=== PATIENT | male | born 1955 ===

== ENCOUNTER 2019-09-06 23:38 | Inpatient (IN) | payer MEDICARE, OTHER ==
[~2019-09-06] VITALS: Ht 170.2 cm; Wt 100.0 kg
--- NOTE | 2019-09-07 00:06 | NUR ---
THIS IS A 64 YO MALE BIB EMS FROM [facility] FOR ABNORMAL LABS, WBC AT 27. PER PAPERWORK THAT PATIENT CAME WITH, POSSIBLE EARLY SEPSIS, POTENTIAL LLL PNA, + SHINGLES LOCATED IN UPPER LEFT ABD QUADRANT. PATIENT IS A&OX4 AT THIS TIME, PIV PLACED BY SENDING FACILITY. PATIENT DENIES SOB, DENIES CP, ONLY COMPLAINT IS PAIN WHERE SHINGLES IS LOCATED. PER PAPERWORK, PATIENT SLIPPED IN BATHROOM AT HOME AND THAT IS THE REASON EMS PICKED PATIENT UP AT HOME. AT SENDING FACILITY PATIENT WAS CONFUSED, FEBRILE, DIAPHORETIC, MULTIPLE ABNORMAL LABS. PATIENT DENIES RECENT TRAVEL, DENIES BEING IN CONTACT WITH ANYONE WITH RECENT TRAEL OUT OF COUNTRY OR TO LOCATION WHERE COVID-19 OUTBREAK IS PRESENT. PATIENT SPEAKING IN FULL SENTENCES, PATIENT IS DIAPHORETIC, NORMOTEMP, PATIENT HAS GENERALIZED WEAKNESS. VSS, ALL MONITORING IN PLACE, SINUS RHYTHM ON MONITOR. CALL LIGHT IN REACH.
--- NOTE | 2019-09-07 00:10 | NUR ---
ERP IN ROOM, ERP TO DO COVID-19 TEST. PATIENT NOW ON [employer] PRECAUTIONS FOR RULE-OUT COVID-19. PATIENT ALSO ON CONTACT PRECAUTIONS FOR SHINGLES
[2019-09-07] MEDS ORDERED: ACYC-114 PO (00:23)
[2019-09-07] MEDS ORDERED: METF500T17 PO (00:23)
[2019-09-07] MEDS ORDERED: ATOR-2 PO (00:23)
[2019-09-07] MEDS ORDERED: MELO7.5T5 PO (00:24)
[2019-09-07] MEDS ORDERED: OMEP-110 PO (00:24)
[2019-09-07] MEDS ORDERED: OXYC-307 PO (00:25)
[2019-09-07] MEDS ORDERED: SODIUM CHLORIDE FLUSH 10ML SYR IVF ONE (00:30)
[2019-09-07 00:53] LABS: MEAN CORPUSCULAR HEMOGLOBIN 32.2 pg (27.5-34.5); MEAN CORPUSCULAR HGB CONC 33.4 g/dL (33.2-36.2); MEAN CORPUSCULAR VOLUME 96.3 fL (81-97); MEAN PLATELET VOLUME 9.1 fL (7.4-10.4); PLATELET COUNT 265 x10^3/uL (130-400); RED BLOOD COUNT 4.54 x10^6/uL (4.38-5.82); RED CELL DISTRIBUTION WIDTH 13.4 % (9.4-14.8)
--- NOTE | 2019-09-07 00:57 | NUR ---
REPORT TO FRED BARAJAS RN.
[2019-09-07] MEDS ORDERED: SODIUM CHLORIDE FLUSH 10ML SYR IVF PRN (01:00)
[2019-09-07 01:02] LABS: ALBUMIN 2.2 g/dL (3.4-5.0); ANION GAP 7 mmol/L (5-15); CALCIUM 9.2 mg/dL (8.5-10.1); CHLORIDE 102 mmol/L (98-107); CREATININE 1.02 mg/dL (0.7-1.3)
[2019-09-07 01:14] LABS: BASOPHILS # (AUTO) 0.01 x10^3/uL (0-0.1); BASOPHILS % (AUTO) 0 % (0-1); EOSINOPHILS # (AUTO) 0.01 x10^3/uL (0-0.4); EOSINOPHILS % (AUTO) 0 % (1-7); LYMPHOCYTES # (AUTO) 1.14 x10^3/uL (1-3.4); LYMPHOCYTES % (AUTO) 4 % (22-44); MD SCAN; MONOCYTES # (AUTO) 1.51 x10^3/uL (0.2-0.8); MONOCYTES % (AUTO) 5 % (2-9); NEUTROPHILS # (AUTO) 27.21 x10^3/uL (1.8-6.8); NEUTROPHILS % (AUTO) 91 % (42-75)
--- NOTE | 2019-09-07 01:30 | NUR ---
THIS RN TO ASSUME BACK CARE OF PATIENT
--- NOTE | 2019-09-07 02:17 | NUR ---
ATTEMPT TO CALL REPORT X1
--- NOTE | 2019-09-07 02:25 | NUR ---
REPORT GIVEN TO CHARLIE RASMUSSEN. PLAN OF CARE DISCUSSED
[2019-09-07] MEDS ORDERED: PROMETHAZINE 25 MG/ML, 1ML IM PRN (03:00)
[2019-09-07] MEDS ORDERED: ACETAMINOPHEN 325 MG TABLET PO PRN (03:00)
[2019-09-07] MEDS ORDERED: ONDANSETRON 2MG/ML, 2ML IVPush PRN (03:00)
[2019-09-07] MEDS ORDERED: BISACODYL 10 MG SUPP PR PRN (03:00)
[2019-09-07] MEDS ORDERED: GABAPENTIN 300 MG CAPSULE PO PRN (03:00)
[2019-09-07] MEDS ORDERED: DOCUSATE 100 MG CAPSULE PO PRN (03:00)
[2019-09-07] MEDS ORDERED: VANCOMYCIN PER PHARMACY MC PRN (03:00)
[2019-09-07] MEDS ORDERED: DEXTROSE 50%, 50ML SYRINGE IVPush PRN (03:00)
[2019-09-07] MEDS ORDERED: POLYETHYLENE GLYCOL 17 GM PACKET PO PRN (03:00)
[2019-09-07] MEDS ORDERED: DEXTROSE 4 GM TAB.CHEW PO PRN (03:00)
[2019-09-07] MEDS ORDERED: GLUCAGON 1 MG IM PRN (03:00)
[2019-09-07] MEDS ORDERED: VANCOMYCIN 2,400 MG in SODIUM CHLORIDE 0.9% 500 ML IV ONE ×2 (03:30→07:00)
[2019-09-07] MEDS ORDERED: PHARMACOKINETIC CONSULTATION MC ONE (03:30)
[2019-09-07] MEDS ORDERED: PHARMACOKINETIC MONITORING MC PRN (03:30)
[2019-09-07] MEDS: OXYcodone/APAP 10/325MG TABLET PO PRN ×2 (03:45→12:55)
[2019-09-07] MEDS: ENOXAPARIN 40 MG/0.4 ML SQ SCH (03:47)
[2019-09-07] MEDS: PIPERACILLIN/TAZO/PMX 3.375GM 50 ML IV SCH ×4 (03:47→21:04)
[2019-09-07] MEDS: SODIUM CHLORIDE 0.9% 1,000 ML IV SCH ×4 (03:48→22:56)
[2019-09-07 03:52] VITALS: BP 139/89
[2019-09-07 05:05] LABS: MEAN CORPUSCULAR HEMOGLOBIN 32.1 pg (27.5-34.5); MEAN CORPUSCULAR HGB CONC 33.5 g/dL (33.2-36.2); MEAN CORPUSCULAR VOLUME 95.8 fL (81-97); MEAN PLATELET VOLUME 9.1 fL (7.4-10.4); PLATELET COUNT 227 x10^3/uL (130-400); RED BLOOD COUNT 4.54 x10^6/uL (4.38-5.82); RED CELL DISTRIBUTION WIDTH 13.1 % (9.4-14.8)
[2019-09-07 05:11] LABS: ALBUMIN 2.2 g/dL (3.4-5.0); ANION GAP 8 mmol/L (5-15); CALCIUM 9.2 mg/dL (8.5-10.1); CHLORIDE 104 mmol/L (98-107)
[2019-09-07 05:15] LABS: ALANINE AMINOTRANSFERASE 28 U/L (12-78); ALKALINE PHOSPHATASE 87 U/L (45-117); BILIRUBIN,TOTAL 0.5 mg/dL (0.2-1.0); CREATINE KINASE, TOTAL 70 U/L (39-308); TOTAL PROTEIN 6.6 g/dL (6.4-8.2)
[2019-09-07 05:51] LABS: MD YES
[2019-09-07 05:53] LABS: BAND#(MANUAL) 0.52 x10^3/uL; BANDS%(MANUAL) 2 % (0-7); LYMPH#(MANUAL) 1.31 x10^3/uL (1-3.4); LYMPHS% (MANUAL) 5 % (22-44); MONOS#(MANUAL) 1.31 x10^3/uL (0.3-2.7); MONOS% (MANUAL) 5 % (2-9); SEG#(MANUAL) 23.06 x10^3/uL (1.8-6.8); SEGS% (MANUAL) 88 % (42-75)
[2019-09-07 05:54] LABS: <PLATELET ESTIMATE> ADEQUATE; <PLT MORPHOLOGY> NORMAL PLT MORPH; <RBC MORPHOLOGY> NORMAL
[2019-09-07] MEDS: INSULIN LISPRO 100 UNITS/ML, PEN SQ-INSULIN SCH ×4 (07:00→21:06)
[2019-09-07 08:00] VITALS: BP 146/78
[2019-09-07] MEDS: OMEPRAZOLE 20 MG CAPSULE.DR PO SCH (09:03)
[2019-09-07] MEDS: ACYCLOVIR 400 MG TABLET PO SCH ×5 (09:03→21:05)
[2019-09-07] MEDS: SODIUM CHLORIDE FLUSH 10ML SYR IVF SCH ×2 (09:14→21:08)
[2019-09-07] MEDS: INSULIN GLARGINE 100 UNITS/ML, PEN SQ-INSULIN SCH ×2 (10:05→21:07)
[2019-09-07 12:55] VITALS: BP 137/86
[2019-09-07] MEDS: GABAPENTIN 100 MG CAPSULE PO SCH ×2 (17:06→21:06)
[2019-09-07] MEDS ORDERED: morphine SULFATE ORAL.CONC 20 MG/ML PO PRN (17:30)
[2019-09-07] MEDS: ATORVASTATIN 80 MG TABLET PO SCH (21:05)
[2019-09-07] MEDS: MORPHINE SULFATE 4 MG/ML, 1ML IVPush PRN (21:29)
[2019-09-07 21:59] VITALS: BP 127/76
[2019-09-08 03:04] VITALS: BP 127/78
[2019-09-08] MEDS: ENOXAPARIN 40 MG/0.4 ML SQ SCH (03:07)
[2019-09-08] MEDS: PIPERACILLIN/TAZO/PMX 3.375GM 50 ML IV SCH ×4 (03:07→21:03)
[2019-09-08] MEDS: MORPHINE SULFATE 4 MG/ML, 1ML IVPush PRN ×4 (03:36→20:55)
[2019-09-08 05:23] LABS: MEAN CORPUSCULAR HEMOGLOBIN 32.2 pg (27.5-34.5); MEAN CORPUSCULAR HGB CONC 33.6 g/dL (33.2-36.2); MEAN CORPUSCULAR VOLUME 95.8 fL (81-97); MEAN PLATELET VOLUME 9.2 fL (7.4-10.4); PLATELET COUNT 212 x10^3/uL (130-400); RED BLOOD COUNT 4.09 x10^6/uL (4.38-5.82); RED CELL DISTRIBUTION WIDTH 13.1 % (9.4-14.8)
[2019-09-08 05:37] LABS: ANION GAP 7 mmol/L (5-15); CALCIUM 8.6 mg/dL (8.5-10.1); CHLORIDE 104 mmol/L (98-107)
[2019-09-08 05:40] LABS: CREATININE 0.59 mg/dL (0.7-1.3)
[2019-09-08 05:58] LABS: MD YES
[2019-09-08 05:59] LABS: <RBC MORPHOLOGY> NORMAL; BAND#(MANUAL) 1.16 x10^3/uL; BANDS%(MANUAL) 5 % (0-7); LYMPH#(MANUAL) 2.32 x10^3/uL (1-3.4); LYMPHS% (MANUAL) 10 % (22-44); MONOS#(MANUAL) 1.16 x10^3/uL (0.3-2.7); MONOS% (MANUAL) 5 % (2-9); SEG#(MANUAL) 18.56 x10^3/uL (1.8-6.8); SEGS% (MANUAL) 80 % (42-75)
[2019-09-08 06:00] LABS: <PLATELET ESTIMATE> ADEQUATE; <PLT MORPHOLOGY> NORMAL PLT MORPH
[2019-09-08] MEDS ORDERED: VANCOMYCIN 2,000 MG in SODIUM CHLORIDE 0.9% 500 ML IV SCH (06:00)
[2019-09-08] MEDS: SODIUM CHLORIDE 0.9% 1,000 ML IV SCH (06:17)
[2019-09-08] MEDS: ACYCLOVIR 400 MG TABLET PO SCH ×5 (06:17→20:56)
[2019-09-08 06:44] VITALS: BP 132/85
[2019-09-08] MEDS: INSULIN GLARGINE 100 UNITS/ML, PEN SQ-INSULIN SCH ×2 (08:58→21:58)
[2019-09-08] MEDS: INSULIN LISPRO 100 UNITS/ML, PEN SQ-INSULIN SCH ×4 (08:58→21:00)
[2019-09-08] MEDS: GABAPENTIN 100 MG CAPSULE PO SCH ×3 (08:59→20:56)
[2019-09-08] MEDS: OMEPRAZOLE 20 MG CAPSULE.DR PO SCH (08:59)
[2019-09-08] MEDS: SODIUM CHLORIDE FLUSH 10ML SYR IVF SCH ×2 (09:00→21:00)
[2019-09-08] MEDS ORDERED: POTASSIUM CHLORIDE 20 MEQ TAB.ER.PRT PO ONE (09:30)
[2019-09-08] MEDS: OXYcodone/APAP 10/325MG TABLET PO PRN ×3 (10:33→23:06)
[2019-09-08] MEDS: VANCOMYCIN 2,000 MG in SODIUM CHLORIDE 0.9% 500 ML IV SCH (10:34)
[2019-09-08 13:14] VITALS: BP 130/82
[2019-09-08 19:39] VITALS: BP 180/82
[2019-09-08] MEDS: ATORVASTATIN 80 MG TABLET PO SCH (20:56)
[2019-09-09 00:19] VITALS: BP 126/86
[2019-09-09] MEDS: ENOXAPARIN 40 MG/0.4 ML SQ SCH (03:17)
[2019-09-09] MEDS: PIPERACILLIN/TAZO/PMX 3.375GM 50 ML IV SCH ×4 (03:17→20:48)
[2019-09-09] MEDS: OXYcodone/APAP 10/325MG TABLET PO PRN ×3 (03:38→15:11)
[2019-09-09] MEDS: ACYCLOVIR 400 MG TABLET PO SCH ×5 (05:41→20:50)
[2019-09-09] MEDS: MORPHINE SULFATE 4 MG/ML, 1ML IVPush PRN ×4 (05:44→20:49)
[2019-09-09] MEDS: INSULIN LISPRO 100 UNITS/ML, PEN SQ-INSULIN SCH ×4 (06:21→21:02)
[2019-09-09 08:14] VITALS: BP 123/80
[2019-09-09] MEDS: GABAPENTIN 100 MG CAPSULE PO SCH ×3 (08:58→20:50)
[2019-09-09] MEDS: OMEPRAZOLE 20 MG CAPSULE.DR PO SCH (08:59)
[2019-09-09] MEDS: SODIUM CHLORIDE FLUSH 10ML SYR IVF SCH ×2 (09:00→20:49)
[2019-09-09] MEDS: INSULIN GLARGINE 100 UNITS/ML, PEN SQ-INSULIN SCH ×2 (09:00→21:01)
[2019-09-09] MEDS: VANCOMYCIN 2,000 MG in SODIUM CHLORIDE 0.9% 500 ML IV SCH (11:07)
[2019-09-09 13:48] VITALS: BP 161/81
[2019-09-09 19:01] VITALS: BP 143/80
[2019-09-09] MEDS: ATORVASTATIN 80 MG TABLET PO SCH (20:49)
[2019-09-10 00:39] VITALS: BP 136/77
[2019-09-10] MEDS: PIPERACILLIN/TAZO/PMX 3.375GM 50 ML IV SCH ×4 (02:49→21:11)
[2019-09-10] MEDS: ENOXAPARIN 40 MG/0.4 ML SQ SCH (02:49)
[2019-09-10] MEDS: OXYcodone/APAP 10/325MG TABLET PO PRN ×3 (02:50→16:51)
[2019-09-10] MEDS: ACYCLOVIR 400 MG TABLET PO SCH ×5 (06:09→20:21)
[2019-09-10 06:42] VITALS: BP 144/87
[2019-09-10 06:53] LABS: MEAN CORPUSCULAR HEMOGLOBIN 32.2 pg (27.5-34.5); MEAN CORPUSCULAR HGB CONC 33.4 g/dL (33.2-36.2); MEAN CORPUSCULAR VOLUME 96.4 fL (81-97); MEAN PLATELET VOLUME 9.3 fL (7.4-10.4); PLATELET COUNT 227 x10^3/uL (130-400); RED BLOOD COUNT 4.12 x10^6/uL (4.38-5.82); RED CELL DISTRIBUTION WIDTH 13.4 % (9.4-14.8)
[2019-09-10] MEDS: INSULIN LISPRO 100 UNITS/ML, PEN SQ-INSULIN SCH ×4 (07:00→20:30)
[2019-09-10 07:04] LABS: ANION GAP 7 mmol/L (5-15); CHLORIDE 106 mmol/L (98-107)
[2019-09-10 07:05] LABS: CREATININE 0.61 mg/dL (0.7-1.3)
[2019-09-10 08:07] LABS: MD YES
[2019-09-10 08:09] LABS: BAND#(MANUAL) 0.59 x10^3/uL; BANDS%(MANUAL) 3 % (0-7); BASOS% (MANUAL) 1 % (0-1); EOS% (MANUAL) 1 % (1-7); LYMPH#(MANUAL) 1.19 x10^3/uL (1-3.4); LYMPHS% (MANUAL) 6 % (22-44); MONOS#(MANUAL) 0.59 x10^3/uL (0.3-2.7); MONOS% (MANUAL) 3 % (2-9); SEG#(MANUAL) 17.03 x10^3/uL (1.8-6.8); SEGS% (MANUAL) 86 % (42-75)
[2019-09-10 08:10] LABS: <PLATELET ESTIMATE> ADEQUATE; <PLT MORPHOLOGY> NORMAL PLT MORPH; <RBC MORPHOLOGY> NORMAL; PMNS WITH VACUOLES 1+; TOXIC GRAN 1+
[2019-09-10] MEDS: SODIUM CHLORIDE FLUSH 10ML SYR IVF SCH ×2 (09:02→20:25)
[2019-09-10] MEDS: OMEPRAZOLE 20 MG CAPSULE.DR PO SCH (09:03)
[2019-09-10] MEDS: GABAPENTIN 100 MG CAPSULE PO SCH (09:03)
[2019-09-10] MEDS: INSULIN GLARGINE 100 UNITS/ML, PEN SQ-INSULIN SCH ×2 (09:04→20:31)
[2019-09-10] MEDS ORDERED: POTASSIUM CHLORIDE 20 MEQ TAB.ER.PRT PO ONE (11:00)
[2019-09-10] MEDS: VANCOMYCIN 2,000 MG in SODIUM CHLORIDE 0.9% 500 ML IV SCH (11:35)
[2019-09-10] MEDS: MORPHINE SULFATE 4 MG/ML, 1ML IVPush PRN ×4 (11:45→23:33)
[2019-09-10 13:56] VITALS: BP 117/76
[2019-09-10] MEDS: GABAPENTIN 300 MG CAPSULE PO SCH ×2 (15:09→20:22)
[2019-09-10] MEDS: metFORMIN 500 MG TABLET PO SCH (20:21)
[2019-09-10] MEDS: ATORVASTATIN 80 MG TABLET PO SCH (20:22)
[2019-09-10 20:42] VITALS: BP 142/83
[2019-09-10] MEDS ORDERED: VANCOMYCIN 2,000 MG in SODIUM CHLORIDE 0.9% 500 ML IV SCH (23:30)
[2019-09-11 01:35] VITALS: BP 153/88
[2019-09-11] MEDS: OXYcodone/APAP 10/325MG TABLET PO PRN ×4 (01:57→21:21)
[2019-09-11] MEDS: MORPHINE SULFATE 4 MG/ML, 1ML IVPush PRN ×3 (03:29→18:33)
[2019-09-11] MEDS: ENOXAPARIN 40 MG/0.4 ML SQ SCH (03:29)
[2019-09-11] MEDS: PIPERACILLIN/TAZO/PMX 3.375GM 50 ML IV SCH (03:29)
[2019-09-11 05:11] LABS: MEAN CORPUSCULAR HEMOGLOBIN 32.1 pg (27.5-34.5); MEAN CORPUSCULAR HGB CONC 33.5 g/dL (33.2-36.2); MEAN CORPUSCULAR VOLUME 95.8 fL (81-97); PLATELET COUNT 239 x10^3/uL (130-400); RED BLOOD COUNT 4.01 x10^6/uL (4.38-5.82); RED CELL DISTRIBUTION WIDTH 13.3 % (9.4-14.8)
[2019-09-11 05:20] LABS: ALBUMIN 1.7 g/dL (3.4-5.0); ANION GAP 6 mmol/L (5-15); CALCIUM 8.7 mg/dL (8.5-10.1); CHLORIDE 107 mmol/L (98-107); CREATININE 0.64 mg/dL (0.7-1.3)
[2019-09-11] MEDS: ACYCLOVIR 400 MG TABLET PO SCH ×5 (05:59→21:21)
[2019-09-11 06:05] LABS: MD YES
[2019-09-11 06:08] LABS: BAND#(MANUAL) 0.85 x10^3/uL; BANDS%(MANUAL) 5 % (0-7); BASOS#(MANUAL) 0.17 x10^3/uL (0-0.1); BASOS% (MANUAL) 1 % (0-1); EOS#(MANUAL) 0.17 x10^3/uL (0.0-0.4); EOS% (MANUAL) 1 % (1-7); LYMPH#(MANUAL) 1.01 x10^3/uL (1-3.4); LYMPHS% (MANUAL) 6 % (22-44); MONOS#(MANUAL) 1.69 x10^3/uL (0.3-2.7); MONOS% (MANUAL) 10 % (2-9); SEG#(MANUAL) 13.01 x10^3/uL (1.8-6.8); SEGS% (MANUAL) 77 % (42-75)
[2019-09-11 06:10] LABS: <PLATELET ESTIMATE> ADEQUATE; <PLT MORPHOLOGY> NORMAL PLT MORPH; <RBC MORPHOLOGY> NORMAL; TOXIC GRAN 1+
[2019-09-11 07:06] VITALS: BP 124/78
[2019-09-11] MEDS: AMOXICILLIN/CLAV 875-125MG TABLET PO SCH ×2 (08:18→21:21)
[2019-09-11] MEDS: GABAPENTIN 300 MG CAPSULE PO SCH ×3 (08:18→21:20)
[2019-09-11] MEDS: DOXYCYCLINE 100MG TABLET PO SCH ×2 (08:18→21:22)
[2019-09-11] MEDS: OMEPRAZOLE 20 MG CAPSULE.DR PO SCH (08:18)
[2019-09-11] MEDS: INSULIN GLARGINE 100 UNITS/ML, PEN SQ-INSULIN SCH ×2 (08:19→21:20)
[2019-09-11] MEDS: metFORMIN 500 MG TABLET PO SCH ×2 (08:19→21:22)
[2019-09-11] MEDS: SODIUM CHLORIDE FLUSH 10ML SYR IVF SCH ×2 (08:21→21:00)
[2019-09-11] MEDS: INSULIN LISPRO 100 UNITS/ML, PEN SQ-INSULIN SCH ×4 (08:21→21:20)
[2019-09-11] MEDS ORDERED: CAPSAICIN CRM 0.075%, 60GM TP PRN (09:00)
[2019-09-11 14:00] VITALS: BP 126/79
[2019-09-11 19:10] VITALS: BP 127/78
[2019-09-11] MEDS: AMITRIPTYLINE 25 MG TABLET PO SCH (21:21)
[2019-09-11] MEDS: ATORVASTATIN 80 MG TABLET PO SCH (21:22)
[2019-09-12 02:45] VITALS: BP 143/83
[2019-09-12] MEDS: ENOXAPARIN 40 MG/0.4 ML SQ SCH (02:55)
[2019-09-12] MEDS: MORPHINE SULFATE 4 MG/ML, 1ML IVPush PRN ×5 (02:56→21:40)
[2019-09-12] MEDS: ACYCLOVIR 400 MG TABLET PO SCH ×5 (05:24→21:33)
[2019-09-12] MEDS: OXYcodone/APAP 10/325MG TABLET PO PRN ×2 (05:24→17:47)
[2019-09-12 05:30] LABS: BASOPHILS # (AUTO) 0.07 x10^3/uL (0-0.1); BASOPHILS % (AUTO) 0 % (0-1); EOSINOPHILS # (AUTO) 0.38 x10^3/uL (0-0.4); EOSINOPHILS % (AUTO) 3 % (1-7); LYMPHOCYTES # (AUTO) 1.15 x10^3/uL (1-3.4); LYMPHOCYTES % (AUTO) 8 % (22-44); MD NO; MEAN CORPUSCULAR HEMOGLOBIN 32.1 pg (27.5-34.5); MEAN CORPUSCULAR HGB CONC 33.1 g/dL (33.2-36.2); MEAN CORPUSCULAR VOLUME 96.9 fL (81-97); MEAN PLATELET VOLUME 9.4 fL (7.4-10.4); MONOCYTES # (AUTO) 1.01 x10^3/uL (0.2-0.8); MONOCYTES % (AUTO) 7 % (2-9); NEUTROPHILS % (AUTO) 82 % (42-75); PLATELET COUNT 262 x10^3/uL (130-400); RED BLOOD COUNT 4.18 x10^6/uL (4.38-5.82); RED CELL DISTRIBUTION WIDTH 13.4 % (9.4-14.8)
[2019-09-12 05:41] LABS: ANION GAP 8 mmol/L (5-15); CALCIUM 8.9 mg/dL (8.5-10.1); CHLORIDE 108 mmol/L (98-107); CREATININE 0.64 mg/dL (0.7-1.3)
[2019-09-12] MEDS: DOXYCYCLINE 100MG TABLET PO SCH ×2 (07:07→21:33)
[2019-09-12] MEDS: OMEPRAZOLE 20 MG CAPSULE.DR PO SCH (07:07)
[2019-09-12] MEDS: AMOXICILLIN/CLAV 875-125MG TABLET PO SCH ×2 (07:07→21:33)
[2019-09-12] MEDS: GABAPENTIN 300 MG CAPSULE PO SCH ×3 (07:07→21:33)
[2019-09-12] MEDS: metFORMIN 500 MG TABLET PO SCH ×2 (07:07→21:33)
[2019-09-12] MEDS: SODIUM CHLORIDE FLUSH 10ML SYR IVF SCH ×2 (07:08→21:35)
[2019-09-12 07:27] VITALS: BP 153/90
[2019-09-12] MEDS ORDERED: POTASSIUM CHLORIDE 20 MEQ TAB.ER.PRT PO ONE (08:00)
[2019-09-12] MEDS: INSULIN LISPRO 100 UNITS/ML, PEN SQ-INSULIN SCH ×4 (08:13→21:34)
[2019-09-12] MEDS: INSULIN GLARGINE 100 UNITS/ML, PEN SQ-INSULIN SCH ×2 (08:20→21:34)
[2019-09-12] MEDS: OxyconTIN ER 10 MG TAB.ER PO SCH ×2 (11:56→23:51)
[2019-09-12 13:23] VITALS: BP 141/73
[2019-09-12] MEDS ORDERED: LIDOCAINE/PRILOCAINE CRM W/TEG 5GM TP ONE (15:30)
[2019-09-12] MEDS: KETOROLAC 30 MG/1 ML IVPush PRN (16:35)
[2019-09-12 19:24] VITALS: BP 152/82
[2019-09-12] MEDS: ATORVASTATIN 80 MG TABLET PO SCH (21:32)
[2019-09-12] MEDS: AMITRIPTYLINE 25 MG TABLET PO SCH (21:33)
[2019-09-13 00:09] VITALS: BP 155/92
[2019-09-13] MEDS: MORPHINE SULFATE 4 MG/ML, 1ML IVPush PRN ×3 (04:42→21:04)
[2019-09-13] MEDS: ENOXAPARIN 40 MG/0.4 ML SQ SCH (04:42)
[2019-09-13] MEDS: ACYCLOVIR 400 MG TABLET PO SCH ×5 (06:06→21:04)
[2019-09-13] MEDS: KETOROLAC 30 MG/1 ML IVPush PRN ×3 (06:06→18:25)
[2019-09-13] MEDS: INSULIN LISPRO 100 UNITS/ML, PEN SQ-INSULIN SCH ×4 (07:00→21:06)
[2019-09-13 07:04] VITALS: BP 157/99
[2019-09-13] MEDS: OXYcodone/APAP 10/325MG TABLET PO PRN ×2 (07:37→15:53)
[2019-09-13] MEDS: GABAPENTIN 300 MG CAPSULE PO SCH (09:08)
[2019-09-13] MEDS: INSULIN GLARGINE 100 UNITS/ML, PEN SQ-INSULIN SCH ×2 (09:08→21:06)
[2019-09-13] MEDS: AMOXICILLIN/CLAV 875-125MG TABLET PO SCH ×2 (09:09→21:05)
[2019-09-13] MEDS: OMEPRAZOLE 20 MG CAPSULE.DR PO SCH (09:09)
[2019-09-13] MEDS: metFORMIN 500 MG TABLET PO SCH ×2 (09:09→21:05)
[2019-09-13] MEDS: DOXYCYCLINE 100MG TABLET PO SCH ×2 (09:09→21:05)
[2019-09-13] MEDS: SODIUM CHLORIDE FLUSH 10ML SYR IVF SCH ×2 (09:09→21:07)
[2019-09-13] MEDS: OxyconTIN ER 10 MG TAB.ER PO SCH ×2 (11:16→23:43)
[2019-09-13 12:32] VITALS: BP 166/99
[2019-09-13 13:57] VITALS: BP 151/90
[2019-09-13] MEDS: MUPIROCIN OINT 2%, 22GM TP SCH ×2 (15:52→21:00)
[2019-09-13] MEDS: GABAPENTIN 400 MG CAPSULE PO SCH ×2 (15:52→21:05)
[2019-09-13] MEDS: DOCUSATE 100 MG CAPSULE PO SCH ×2 (15:52→21:05)
[2019-09-13 20:17] VITALS: BP 167/92
[2019-09-13] MEDS: ATORVASTATIN 80 MG TABLET PO SCH (21:05)
[2019-09-13] MEDS: AMITRIPTYLINE 25 MG TABLET PO SCH (21:05)
[2019-09-14 00:18] VITALS: BP 160/92
[2019-09-14] MEDS: KETOROLAC 30 MG/1 ML IVPush PRN ×2 (01:45→07:46)
[2019-09-14] MEDS: ENOXAPARIN 40 MG/0.4 ML SQ SCH (02:16)
[2019-09-14] MEDS: OXYcodone/APAP 10/325MG TABLET PO PRN ×2 (02:16→17:40)
[2019-09-14] MEDS: ACYCLOVIR 400 MG TABLET PO SCH ×5 (06:03→21:03)
[2019-09-14] MEDS: MORPHINE SULFATE 4 MG/ML, 1ML IVPush PRN ×3 (06:03→15:17)
[2019-09-14 06:57] LABS: MEAN CORPUSCULAR HEMOGLOBIN 32.1 pg (27.5-34.5); MEAN CORPUSCULAR HGB CONC 33.2 g/dL (33.2-36.2); MEAN CORPUSCULAR VOLUME 96.6 fL (81-97); MEAN PLATELET VOLUME 8.3 fL (7.4-10.4); PLATELET COUNT 303 x10^3/uL (130-400); RED BLOOD COUNT 4.22 x10^6/uL (4.38-5.82); RED CELL DISTRIBUTION WIDTH 13.3 % (9.4-14.8)
[2019-09-14] MEDS: INSULIN LISPRO 100 UNITS/ML, PEN SQ-INSULIN SCH ×4 (07:00→21:06)
[2019-09-14 07:09] LABS: ANION GAP 7 mmol/L (5-15); CALCIUM 9.1 mg/dL (8.5-10.1); CHLORIDE 111 mmol/L (98-107); CREATININE 0.63 mg/dL (0.7-1.3)
[2019-09-14 07:21] LABS: BASOPHILS # (AUTO) 0.03 x10^3/uL (0-0.1); BASOPHILS % (AUTO) 0 % (0-1); EOSINOPHILS # (AUTO) 0.46 x10^3/uL (0-0.4); EOSINOPHILS % (AUTO) 3 % (1-7); LYMPHOCYTES # (AUTO) 1.48 x10^3/uL (1-3.4); LYMPHOCYTES % (AUTO) 10 % (22-44); MD SCAN; MONOCYTES # (AUTO) 0.64 x10^3/uL (0.2-0.8); MONOCYTES % (AUTO) 4 % (2-9); NEUTROPHILS % (AUTO) 82 % (42-75)
[2019-09-14] MEDS: AMOXICILLIN/CLAV 875-125MG TABLET PO SCH ×2 (07:32→21:03)
[2019-09-14] MEDS: GABAPENTIN 400 MG CAPSULE PO SCH (07:33)
[2019-09-14] MEDS: DOXYCYCLINE 100MG TABLET PO SCH ×2 (07:33→21:03)
[2019-09-14] MEDS: SODIUM CHLORIDE FLUSH 10ML SYR IVF SCH ×2 (07:33→21:00)
[2019-09-14] MEDS: metFORMIN 500 MG TABLET PO SCH ×2 (07:33→21:03)
[2019-09-14] MEDS: DOCUSATE 100 MG CAPSULE PO SCH ×3 (07:35→21:07)
[2019-09-14] MEDS: POLYETHYLENE GLYCOL 17 GM PACKET PO SCH (07:35)
[2019-09-14 07:40] VITALS: BP 160/85
[2019-09-14] MEDS: OMEPRAZOLE 20 MG CAPSULE.DR PO SCH (07:50)
[2019-09-14] MEDS: INSULIN GLARGINE 100 UNITS/ML, PEN SQ-INSULIN SCH ×2 (07:51→21:04)
[2019-09-14] MEDS: MUPIROCIN OINT 2%, 22GM TP SCH ×3 (07:52→21:00)
[2019-09-14] MEDS ORDERED: GABAPENTIN 300 MG CAPSULE PO SCH (10:30)
[2019-09-14] MEDS: OxyconTIN ER 10 MG TAB.ER PO SCH ×2 (12:01→23:29)
[2019-09-14 14:47] VITALS: BP 187/104
[2019-09-14] MEDS ORDERED: GABAPENTIN 300 MG CAPSULE ONE (15:13)
[2019-09-14] MEDS: GABAPENTIN 300 MG CAPSULE PO SCH ×2 (15:16→21:03)
[2019-09-14 19:35] VITALS: BP 167/84
[2019-09-14] MEDS: AMITRIPTYLINE 25 MG TABLET PO SCH (21:03)
[2019-09-14] MEDS: ATORVASTATIN 80 MG TABLET PO SCH (21:03)
[2019-09-15 02:33] VITALS: BP 150/84
[2019-09-15] MEDS: ENOXAPARIN 40 MG/0.4 ML SQ SCH (02:35)
[2019-09-15] MEDS: ACYCLOVIR 400 MG TABLET PO SCH ×5 (04:55→20:16)
[2019-09-15] MEDS: OXYcodone/APAP 10/325MG TABLET PO PRN ×3 (04:55→16:56)
[2019-09-15 05:24] LABS: MEAN CORPUSCULAR HEMOGLOBIN 32.6 pg (27.5-34.5); MEAN CORPUSCULAR HGB CONC 33.8 g/dL (33.2-36.2); MEAN CORPUSCULAR VOLUME 96.5 fL (81-97); MEAN PLATELET VOLUME 8.6 fL (7.4-10.4); PLATELET COUNT 305 x10^3/uL (130-400); RED BLOOD COUNT 4.14 x10^6/uL (4.38-5.82); RED CELL DISTRIBUTION WIDTH 13.2 % (9.4-14.8)
[2019-09-15 05:29] LABS: CALCIUM 8.9 mg/dL (8.5-10.1); CHLORIDE 109 mmol/L (98-107)
[2019-09-15 05:33] LABS: ALBUMIN 1.9 g/dL (3.4-5.0); ANION GAP 8 mmol/L (5-15); CREATININE 0.58 mg/dL (0.7-1.3)
[2019-09-15 06:14] LABS: BASOPHILS # (AUTO) 0.03 x10^3/uL (0-0.1); BASOPHILS % (AUTO) 0 % (0-1); EOSINOPHILS # (AUTO) 0.35 x10^3/uL (0-0.4); EOSINOPHILS % (AUTO) 2 % (1-7); LYMPHOCYTES # (AUTO) 1.29 x10^3/uL (1-3.4); LYMPHOCYTES % (AUTO) 9 % (22-44); MD SCAN; MONOCYTES # (AUTO) 0.93 x10^3/uL (0.2-0.8); MONOCYTES % (AUTO) 6 % (2-9); NEUTROPHILS # (AUTO) 12.61 x10^3/uL (1.8-6.8); NEUTROPHILS % (AUTO) 83 % (42-75)
[2019-09-15] MEDS: INSULIN LISPRO 100 UNITS/ML, PEN SQ-INSULIN SCH ×4 (07:00→20:16)
[2019-09-15 07:46] VITALS: BP 133/86
[2019-09-15] MEDS: SODIUM CHLORIDE FLUSH 10ML SYR IVF SCH ×2 (08:23→20:13)
[2019-09-15] MEDS: AMOXICILLIN/CLAV 875-125MG TABLET PO SCH (08:24)
[2019-09-15] MEDS: INSULIN GLARGINE 100 UNITS/ML, PEN SQ-INSULIN SCH ×2 (08:24→20:17)
[2019-09-15] MEDS: OMEPRAZOLE 20 MG CAPSULE.DR PO SCH (08:24)
[2019-09-15] MEDS: DOXYCYCLINE 100MG TABLET PO SCH (08:24)
[2019-09-15] MEDS: GABAPENTIN 300 MG CAPSULE PO SCH ×3 (08:24→20:15)
[2019-09-15] MEDS: metFORMIN 500 MG TABLET PO SCH ×2 (08:24→17:42)
[2019-09-15] MEDS: MUPIROCIN OINT 2%, 22GM TP SCH ×3 (08:25→20:13)
[2019-09-15] MEDS: DOCUSATE 100 MG CAPSULE PO SCH ×2 (08:25→20:14)
[2019-09-15] MEDS: POLYETHYLENE GLYCOL 17 GM PACKET PO SCH (08:25)
[2019-09-15] MEDS ORDERED: POTASSIUM CHLORIDE 20 MEQ in SODIUM CHLORIDE 0.9% 250 ML IV ONE (09:00)
[2019-09-15] MEDS: POTASSIUM PHOSPHATE IV ONE ×2 (09:57→18:47)
[2019-09-15] MEDS: POTASSIUM CHLORIDE IV ONE ×2 (09:57→18:47)
[2019-09-15] MEDS: SODIUM CHLORIDE 0.9% IV ONE ×2 (09:57→18:47)
[2019-09-15] MEDS: CHOLECALCIFEROL 400 UNITS TABLET PO SCH (10:41)
[2019-09-15] MEDS: MORPHINE SULFATE 4 MG/ML, 1ML IVPush PRN ×2 (10:41→15:42)
[2019-09-15] MEDS: MULTIVITS,STRESS FORMULA 1 TABLET PO SCH (10:41)
[2019-09-15] MEDS: OxyconTIN ER 10 MG TAB.ER PO SCH ×2 (11:43→23:39)
[2019-09-15 11:44] VITALS: BP 142/82
[2019-09-15 14:39] VITALS: BP 143/88
[2019-09-15] MEDS: ASCORBIC ACID 500 MG TABLET PO SCH (16:57)
[2019-09-15 19:22] VITALS: BP 124/76
[2019-09-15] MEDS: AMITRIPTYLINE 25 MG TABLET PO SCH (20:16)
[2019-09-15] MEDS: ATORVASTATIN 80 MG TABLET PO SCH (20:16)
[2019-09-15] MEDS: SULFAMETH./TRIMETHOPRIM DS 800MG/160MG TABLET PO SCH (20:16)
[2019-09-16] MEDS: ENOXAPARIN 40 MG/0.4 ML SQ SCH (02:19)
[2019-09-16 02:46] VITALS: BP 138/80
[2019-09-16] MEDS: ACYCLOVIR 400 MG TABLET PO SCH ×5 (05:29→20:19)
[2019-09-16] MEDS: OXYcodone/APAP 10/325MG TABLET PO PRN ×3 (05:34→18:15)
[2019-09-16 05:56] LABS: MEAN CORPUSCULAR HEMOGLOBIN 32.6 pg (27.5-34.5); MEAN CORPUSCULAR HGB CONC 33.8 g/dL (33.2-36.2); MEAN CORPUSCULAR VOLUME 96.2 fL (81-97); MEAN PLATELET VOLUME 8.3 fL (7.4-10.4); PLATELET COUNT 331 x10^3/uL (130-400); RED BLOOD COUNT 4.15 x10^6/uL (4.38-5.82); RED CELL DISTRIBUTION WIDTH 13.5 % (9.4-14.8)
[2019-09-16 06:12] LABS: ALBUMIN 1.9 g/dL (3.4-5.0); ANION GAP 5 mmol/L (5-15); CALCIUM 9.1 mg/dL (8.5-10.1); CHLORIDE 110 mmol/L (98-107)
[2019-09-16 06:17] LABS: BASOPHILS # (AUTO) 0.02 x10^3/uL (0-0.1); BASOPHILS % (AUTO) 0 % (0-1); EOSINOPHILS # (AUTO) 0.33 x10^3/uL (0-0.4); EOSINOPHILS % (AUTO) 2 % (1-7); LYMPHOCYTES # (AUTO) 1.45 x10^3/uL (1-3.4); LYMPHOCYTES % (AUTO) 10 % (22-44); MD SCAN; MONOCYTES # (AUTO) 0.85 x10^3/uL (0.2-0.8); MONOCYTES % (AUTO) 6 % (2-9); NEUTROPHILS # (AUTO) 11.98 x10^3/uL (1.8-6.8); NEUTROPHILS % (AUTO) 82 % (42-75)
[2019-09-16] MEDS: INSULIN LISPRO 100 UNITS/ML, PEN SQ-INSULIN SCH ×4 (07:00→20:20)
[2019-09-16] MEDS: GABAPENTIN 300 MG CAPSULE PO SCH ×3 (09:00→20:19)
[2019-09-16] MEDS: POLYETHYLENE GLYCOL 17 GM PACKET PO SCH (09:00)
[2019-09-16] MEDS: MULTIVITS,STRESS FORMULA 1 TABLET PO SCH (09:00)
[2019-09-16] MEDS: DOCUSATE 100 MG CAPSULE PO SCH ×3 (09:00→20:20)
[2019-09-16] MEDS: CHOLECALCIFEROL 400 UNITS TABLET PO SCH (09:01)
[2019-09-16] MEDS: SULFAMETH./TRIMETHOPRIM DS 800MG/160MG TABLET PO SCH ×2 (09:01→20:19)
[2019-09-16] MEDS: OMEPRAZOLE 20 MG CAPSULE.DR PO SCH (09:01)
[2019-09-16] MEDS: metFORMIN 500 MG TABLET PO SCH ×2 (09:01→16:03)
[2019-09-16] MEDS: ASCORBIC ACID 500 MG TABLET PO SCH ×2 (09:02→16:03)
[2019-09-16] MEDS: MUPIROCIN OINT 2%, 22GM TP SCH ×3 (09:03→20:20)
[2019-09-16] MEDS: SODIUM CHLORIDE FLUSH 10ML SYR IVF SCH ×2 (09:03→20:20)
[2019-09-16] MEDS: INSULIN GLARGINE 100 UNITS/ML, PEN SQ-INSULIN SCH ×2 (09:03→20:20)
[2019-09-16] MEDS: KETOROLAC 30 MG/1 ML IVPush PRN ×2 (09:05→16:33)
[2019-09-16 09:40] VITALS: BP 140/85
[2019-09-16] MEDS: OxyconTIN ER 10 MG TAB.ER PO SCH ×2 (10:54→23:13)
[2019-09-16] MEDS: MORPHINE SULFATE 4 MG/ML, 1ML IVPush PRN (13:58)
[2019-09-16 15:00] VITALS: BP 130/77
[2019-09-16 19:34] VITALS: BP 131/77
[2019-09-16] MEDS: AMITRIPTYLINE 25 MG TABLET PO SCH (20:19)
[2019-09-16] MEDS: ATORVASTATIN 80 MG TABLET PO SCH (20:19)
[2019-09-17] MEDS: ENOXAPARIN 40 MG/0.4 ML SQ SCH (02:02)
[2019-09-17 02:28] VITALS: BP 145/82
[2019-09-17] MEDS: ACYCLOVIR 400 MG TABLET PO SCH ×5 (06:00→21:23)
[2019-09-17 06:59] LABS: BASOPHILS # (AUTO) 0.02 x10^3/uL (0-0.1); BASOPHILS % (AUTO) 0 % (0-1); EOSINOPHILS # (AUTO) 0.38 x10^3/uL (0-0.4); EOSINOPHILS % (AUTO) 3 % (1-7); LYMPHOCYTES # (AUTO) 1.33 x10^3/uL (1-3.4); LYMPHOCYTES % (AUTO) 10 % (22-44); MD NO; MEAN CORPUSCULAR HEMOGLOBIN 31.9 pg (27.5-34.5); MEAN CORPUSCULAR HGB CONC 32.9 g/dL (33.2-36.2); MEAN PLATELET VOLUME 8.1 fL (7.4-10.4); MONOCYTES # (AUTO) 0.72 x10^3/uL (0.2-0.8); MONOCYTES % (AUTO) 5 % (2-9); NEUTROPHILS # (AUTO) 11.16 x10^3/uL (1.8-6.8); NEUTROPHILS % (AUTO) 82 % (42-75); PLATELET COUNT 332 x10^3/uL (130-400); RED BLOOD COUNT 4.26 x10^6/uL (4.38-5.82); RED CELL DISTRIBUTION WIDTH 13.1 % (9.4-14.8)
[2019-09-17] MEDS: INSULIN LISPRO 100 UNITS/ML, PEN SQ-INSULIN SCH ×4 (07:00→21:00)
[2019-09-17] MEDS ORDERED: BUPIVACAINE/PF 0.5% ONE (07:02)
[2019-09-17] MEDS ORDERED: BUPIVACAINE/PF-EPI 0.5% 1:200K ONE (07:02)
[2019-09-17 07:05] LABS: ANION GAP 6 mmol/L (5-15); CALCIUM 8.9 mg/dL (8.5-10.1); CHLORIDE 110 mmol/L (98-107); CREATININE 0.69 mg/dL (0.7-1.3)
[2019-09-17] MEDS ORDERED: MIDAZOLAM 1 MG/ML, 2ML ONE (07:12)
[2019-09-17] MEDS ORDERED: FENTANYL PF 250 MCG/5ML ONE (07:13)
[2019-09-17] MEDS: MORPHINE SULFATE 4 MG/ML, 1ML IVPush PRN ×2 (07:22→14:10)
[2019-09-17 07:30] VITALS: BP 141/75
[2019-09-17] MEDS ORDERED: ONDANSETRON 2MG/ML, 2ML IV PRN (07:30)
[2019-09-17] MEDS ORDERED: HYDROmorphone 2 MG/ML, 1ML IVPush PRN (07:30)
[2019-09-17] MEDS ORDERED: PROMETHAZINE 25 MG SUPP PR PRN (07:30)
[2019-09-17] MEDS ORDERED: MEPERIDINE/PF 25MG/ML,1ML IVPush PRN (07:30)
[2019-09-17] MEDS ORDERED: LABETALOL 5MG/ML, 20ML IV PRN (07:30)
[2019-09-17] MEDS ORDERED: hydrALAzine 20 MG/ML, 1ML IV PRN (07:30)
[2019-09-17] MEDS ORDERED: LORazepam 2 MG/ML, 1ML IVPush PRN (07:30)
[2019-09-17] MEDS ORDERED: PROMETHAZINE 25 MG/ML, 1ML IV PRN (07:30)
[2019-09-17] MEDS ORDERED: ACETAMINOPHEN 325 MG TABLET PO PRN (07:30)
[2019-09-17] MEDS ORDERED: ONDANSETRON ODT 8 MG PO PRN (07:30)
[2019-09-17] MEDS ORDERED: OXYcodone 5 MG/5 ML ORAL.SOL UDC PO PRN (07:30)
[2019-09-17] MEDS: metFORMIN 500 MG TABLET PO SCH ×2 (07:57→16:05)
[2019-09-17] MEDS: ASCORBIC ACID 500 MG TABLET PO SCH ×2 (07:57→16:05)
[2019-09-17] MEDS ORDERED: CEFAZOLIN 1,000 MG ONE (08:20)
[2019-09-17] MEDS ORDERED: PROPOFOL 10 MG/ML, 20ML ONE (08:20)
[2019-09-17] MEDS ORDERED: ONDANSETRON 2MG/ML, 2ML ONE (08:20)
[2019-09-17] MEDS ORDERED: DEXAMETHASONE 4 MG/ML, 1ML ONE (08:20)
[2019-09-17] MEDS ORDERED: FENTANYL PF 100 MCG/2ML ONE (08:22)
[2019-09-17] MEDS ORDERED: OXYcodone 5 MG/5 ML ORAL.SOL UDC ONE (08:22)
[2019-09-17] MEDS ORDERED: ACETAMINOPHEN 650 MG/20.3 ML UDC ONE (08:23)
[2019-09-17] MEDS: FENTANYL PF 100 MCG/2ML IV PRN ×2 (08:39→08:50)
[2019-09-17] MEDS ORDERED: HYDROmorphone 1 MG/ML, 1ML INJ ONE (08:57)
[2019-09-17] MEDS: MUPIROCIN OINT 2%, 22GM TP SCH (09:00)
[2019-09-17] MEDS: DOCUSATE 100 MG CAPSULE PO SCH ×2 (09:00→21:21)
[2019-09-17] MEDS: INSULIN GLARGINE 100 UNITS/ML, PEN SQ-INSULIN SCH ×2 (09:00→21:23)
[2019-09-17] MEDS: POLYETHYLENE GLYCOL 17 GM PACKET PO SCH (09:00)
[2019-09-17] MEDS: MULTIVITS,STRESS FORMULA 1 TABLET PO SCH (10:25)
[2019-09-17] MEDS: GABAPENTIN 300 MG CAPSULE PO SCH ×3 (10:25→21:25)
[2019-09-17] MEDS: OMEPRAZOLE 20 MG CAPSULE.DR PO SCH (10:25)
[2019-09-17] MEDS: SULFAMETH./TRIMETHOPRIM DS 800MG/160MG TABLET PO SCH ×2 (10:25→21:22)
[2019-09-17] MEDS: SODIUM CHLORIDE FLUSH 10ML SYR IVF SCH ×2 (10:25→21:21)
[2019-09-17] MEDS: CHOLECALCIFEROL 400 UNITS TABLET PO SCH (10:25)
[2019-09-17] MEDS: OxyconTIN ER 10 MG TAB.ER PO SCH ×2 (11:16→23:35)
[2019-09-17 12:53] VITALS: BP 118/64
[2019-09-17] MEDS: OXYcodone/APAP 10/325MG TABLET PO PRN (17:24)
[2019-09-17 19:20] VITALS: BP 130/78
[2019-09-17] MEDS: AMITRIPTYLINE 25 MG TABLET PO SCH (21:00)
[2019-09-17] MEDS: ATORVASTATIN 80 MG TABLET PO SCH (21:22)
[2019-09-18 00:58] VITALS: BP 124/79
[2019-09-18] MEDS: ENOXAPARIN 40 MG/0.4 ML SQ SCH (02:38)
[2019-09-18] MEDS: ACYCLOVIR 400 MG TABLET PO SCH ×5 (05:53→21:38)
[2019-09-18] MEDS: OXYcodone/APAP 10/325MG TABLET PO PRN ×2 (05:55→13:44)
[2019-09-18] MEDS: INSULIN LISPRO 100 UNITS/ML, PEN SQ-INSULIN SCH ×4 (07:00→21:00)
[2019-09-18 07:12] VITALS: BP 118/77
[2019-09-18] MEDS: POLYETHYLENE GLYCOL 17 GM PACKET PO SCH (09:00)
[2019-09-18] MEDS: DOCUSATE 100 MG CAPSULE PO SCH ×2 (09:00→21:00)
[2019-09-18] MEDS: OMEPRAZOLE 20 MG CAPSULE.DR PO SCH (09:42)
[2019-09-18] MEDS: CHOLECALCIFEROL 400 UNITS TABLET PO SCH (09:42)
[2019-09-18] MEDS: MULTIVITS,STRESS FORMULA 1 TABLET PO SCH (09:42)
[2019-09-18] MEDS: ASCORBIC ACID 500 MG TABLET PO SCH ×2 (09:43→17:09)
[2019-09-18] MEDS: GABAPENTIN 300 MG CAPSULE PO SCH ×3 (09:43→21:38)
[2019-09-18] MEDS: metFORMIN 500 MG TABLET PO SCH ×2 (09:43→17:10)
[2019-09-18] MEDS: SULFAMETH./TRIMETHOPRIM DS 800MG/160MG TABLET PO SCH ×2 (09:43→21:38)
[2019-09-18] MEDS: MORPHINE SULFATE 4 MG/ML, 1ML IVPush PRN ×5 (09:44→17:24)
[2019-09-18] MEDS: INSULIN GLARGINE 100 UNITS/ML, PEN SQ-INSULIN SCH ×2 (09:45→21:37)
[2019-09-18] MEDS: SODIUM CHLORIDE FLUSH 10ML SYR IVF SCH ×2 (09:46→21:39)
[2019-09-18] MEDS: OxyconTIN ER 10 MG TAB.ER PO SCH ×2 (11:35→23:35)
[2019-09-18 12:29] VITALS: BP 116/76
[2019-09-18] MEDS: AMITRIPTYLINE 25 MG TABLET PO SCH (21:00)
[2019-09-18 21:04] VITALS: BP 125/80
[2019-09-18] MEDS: ATORVASTATIN 80 MG TABLET PO SCH (21:37)
[2019-09-19] MEDS: MORPHINE SULFATE 4 MG/ML, 1ML IVPush PRN ×2 (00:43→08:27)
[2019-09-19] MEDS: ENOXAPARIN 40 MG/0.4 ML SQ SCH (01:51)
[2019-09-19 02:00] VITALS: BP 112/72
[2019-09-19] MEDS: ACYCLOVIR 400 MG TABLET PO SCH ×3 (05:18→13:56)
[2019-09-19 05:20] LABS: ALBUMIN 2.1 g/dL (3.4-5.0); ANION GAP 7 mmol/L (5-15); CALCIUM 9.1 mg/dL (8.5-10.1); CHLORIDE 108 mmol/L (98-107)
[2019-09-19 05:21] LABS: CREATININE 0.61 mg/dL (0.7-1.3)
[2019-09-19 05:24] LABS: BASOPHILS # (AUTO) 0.06 x10^3/uL (0-0.1); BASOPHILS % (AUTO) 1 % (0-1); EOSINOPHILS # (AUTO) 0.28 x10^3/uL (0-0.4); EOSINOPHILS % (AUTO) 4 % (1-7); LYMPHOCYTES # (AUTO) 1.71 x10^3/uL (1-3.4); LYMPHOCYTES % (AUTO) 21 % (22-44); MD NO; MEAN CORPUSCULAR HEMOGLOBIN 31.6 pg (27.5-34.5); MEAN CORPUSCULAR HGB CONC 32.6 g/dL (33.2-36.2); MEAN CORPUSCULAR VOLUME 96.9 fL (81-97); MEAN PLATELET VOLUME 8.7 fL (7.4-10.4); MONOCYTES # (AUTO) 0.65 x10^3/uL (0.2-0.8); MONOCYTES % (AUTO) 8 % (2-9); NEUTROPHILS # (AUTO) 5.29 x10^3/uL (1.8-6.8); NEUTROPHILS % (AUTO) 66 % (42-75); PLATELET COUNT 364 x10^3/uL (130-400); RED BLOOD COUNT 4.22 x10^6/uL (4.38-5.82); RED CELL DISTRIBUTION WIDTH 13.6 % (9.4-14.8)
[2019-09-19] MEDS: INSULIN LISPRO 100 UNITS/ML, PEN SQ-INSULIN SCH ×2 (07:00→11:00)
[2019-09-19] MEDS: CHOLECALCIFEROL 400 UNITS TABLET PO SCH (08:18)
[2019-09-19] MEDS: MULTIVITS,STRESS FORMULA 1 TABLET PO SCH (08:18)
[2019-09-19] MEDS: GABAPENTIN 300 MG CAPSULE PO SCH (08:19)
[2019-09-19] MEDS: POLYETHYLENE GLYCOL 17 GM PACKET PO SCH (08:19)
[2019-09-19] MEDS: ASCORBIC ACID 500 MG TABLET PO SCH (08:19)
[2019-09-19] MEDS: SULFAMETH./TRIMETHOPRIM DS 800MG/160MG TABLET PO SCH (08:19)
[2019-09-19] MEDS: OMEPRAZOLE 20 MG CAPSULE.DR PO SCH (08:19)
[2019-09-19] MEDS: metFORMIN 500 MG TABLET PO SCH (08:19)
[2019-09-19] MEDS: SODIUM CHLORIDE FLUSH 10ML SYR IVF SCH (08:20)
[2019-09-19] MEDS: INSULIN GLARGINE 100 UNITS/ML, PEN SQ-INSULIN SCH (08:21)
[2019-09-19 08:22] VITALS: BP 117/71
[2019-09-19] MEDS: DOCUSATE 100 MG CAPSULE PO SCH (08:27)
[2019-09-19] MEDS ORDERED: CEFAZOLIN 2,000 MG in SODIUM CHLORIDE 0.9% 50 ML IV SCH (11:30)
[2019-09-19] MEDS ORDERED: CEFAZOLIN PMX 2GM/50ML 50 ML IVPB SCH (11:30)
[2019-09-19] MEDS: OxyconTIN ER 10 MG TAB.ER PO SCH (11:49)
[2019-09-19] MEDS ORDERED: LINE600T12 PO (11:58)
[2019-09-19 12:16] VITALS: BP 143/86
[2019-09-19] MEDS: OXYcodone/APAP 10/325MG TABLET PO PRN (14:52)
== END 2019-09-19 16:07 | disposition home or self-care (01) | DRG 853 ==
LOC: ED 23:40 → EDIP 09-07 01:47 → 3N 09-07 02:56
PROVIDERS: ADMIT Internal Medicine; ATTEND Internal Medicine Infectious Disease
PROC: 0J960ZZ Drainage of Chest Subcutaneous Tissue and Fascia, Open Approach (ICD-10-PCS; principal; 2019-09-17 07:30)
DX: A41.9 Sepsis, unspecified organism (principal); G92 Toxic encephalopathy; J15.9 Unspecified bacterial pneumonia; E87.1 Hypo-osmolality and hyponatremia; B02.29 Other postherpetic nervous system involvement; L02.213 Cutaneous abscess of chest wall; L03.313 Cellulitis of chest wall; E88.09 Other disorders of plasma-protein metabolism, not elsewhere classified; E11.65 Type 2 diabetes mellitus with hyperglycemia; E87.6 Hypokalemia; F17.200 Nicotine dependence, unspecified, uncomplicated; F32.9 Major depressive disorder, single episode, unspecified; I10 Essential (primary) hypertension; K22.70 Barrett's esophagus without dysplasia; M19.90 Unspecified osteoarthritis, unspecified site
CPT/HCPCS: 36415; 71045; 71260; 80048; 80053; 80069; 80202; 82040; 82550; 82962; 83605; 83735; 84100; 84145; 85025; 86787; 87040; 87070; 87075; 87077; 87102; 87147; 87186; 87205; 87798; 93005; 99285; G0378; J0690; J1100; J1170; J1650; J1885; J2250; J2405; J2543; J2704; J3010; J3370; J3480; J1815; J2270; J7030; J7040